=== PATIENT | female | born 1965 | race Caucasian/White ===

== ENCOUNTER → 2017-10-31 | Outpatient (CLI) | payer OTHER ==
[2017-10-31 18:59] LABS: Basophils # (A) 0.1 k/uL (0-0.2); Basophils % (A) 1 %; Eosinophils # (A) 0.1 k/uL (0-0.7); Eosinophils % (A) 1 %; HCT 42.9 % (34.0-46.0); Lymphocytes # (A) 1.8 k/uL (1.0-4.8); Lymphocytes % (A) 27 %; MCH 31.9 pg (25.0-35.0); MCHC 34.9 g/dL (31.0-37.0); MCV 91.4 fL (80.0-100.0); Mean Platelet Volume 6.8; Monocytes # (A) 0.5 k/uL (0-1.0); Monocytes % (A) 7 %; Neutrophils # (A) 4.1 k/uL (1.3-7.7); Neutrophils % (A) 61 %; Platelet Count 329 k/uL (150-450); RBC 4.69 m/uL (3.80-5.40); WBC 6.7 k/uL (3.8-10.6)
== END | disposition home or self-care (01) ==
LOC: LABPAT 17:00
PROVIDERS: ATTEND Obstetrics & Gynecology
DX: Z01.812 Encounter for preprocedural laboratory examination (principal); D06.9 Carcinoma in situ of cervix, unspecified
CPT/HCPCS: 36415; 85025

== ENCOUNTER 2017-11-05 09:22 | Day surgery (SDC) | payer OTHER ==
[2017-10-31 15:46] VITALS: BMI 25.7
--- NOTE | 2017-11-04 16:06 | HP ---
HISTORY AND PHYSICAL DATE OF SURGERY: 11/05/2017 This is a 51-year-old white female who presents with a history of abnormal Pap smear. This was followed up by colposcopy in the office, biopsies at 10 o'clock and ECC, both revealing high-grade ANN. Patient is postmenopausal. We have discussed options and have elected to proceed with cold knife conization of the cervix and ECC. She understands the risks of bleeding, infection, inadequate removal of lesion, postoperative dyspareunia and recurrence, as well as the risks of anesthesia. All questions answered. PAST MEDICAL HISTORY: Significant for thyroid disease. PAST SURGICAL HISTORY: 1. Appendectomy in 1978. 2. Foot surgery in May of 2017. CURRENT MEDICATIONS: 1. Alprazolam 0.25 mg as needed. 2. Calcium with vitamin D daily. 3. Fish oil daily. 4. Levothyroxine 100 mcg daily. 5. Multivitamin daily. ALLERGIES: NONE KNOWN. FAMILY HISTORY: Significant for brain cancer in the patient's father. REPRODUCTIVE HISTORY: Significant for 1 miscarriage, 3 normal spontaneous vaginal deliveries without complication. 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 She admits to 1-2 alcoholic beverages weekly, caffeine daily, has never been a tobacco smoker or a user of illicit drugs. PHYSICAL EXAMINATION: This is a pleasant white female, 5 feet 4 inches, 157 pounds, BMI 27, blood pressure 120/72. Patient is afebrile. HEENT exam reveals no thyromegaly, no cervical lymphadenopathy, good dentition. Breasts are bilaterally symmetric to inspection with no nipple discharge, axillary adenopathy or discernible lesions or masses. ABDOMEN: Soft, nontender. No organosplenomegaly. No CVA tenderness. Cardiac exam reveals regular rate and rhythm with no murmur, click, or rub. CHEST: Clear in all kumar anteriorly and posteriorly. Extremities are negative for edema. There are good peripheral pulses. On pelvic exam, cervix is multiparous. Uterus is small, mobile, anteverted and anteflexed. Adnexa are negative bilaterally. Rectal exam is negative. IMPRESSION: High-grade ANN noted on colposcopically directed biopsies of the cervix at 10 o'clock with positive ECC. PLAN: We will proceed with cold knife conization at the hospital. All risks, benefits and alternatives have been reviewed in detail, all questions answered. MMODL / IJN: [id number] /
[~2017-11-05 09:22] MED LIST: DEXAMETHASONE SOD PHOSPHATE 10 MG/ML 1 ML VIAL IV ONE; LACTATED RINGERS 1,000 ML IV SCH; LIDOCAINE 1% 20 ML VIAL (10MG/ML) FOR IV START INTRADERMA PRN; ONDANSETRON 4 MG/2 ML VIAL IVP ONE; Pre Op ABX Message 1 EACH MISC MISCELLANE ONE; SCOPOLAMINE 1.5MG/72HR PATCH TRANSDERM ONE; fentaNYL (PF) 50 MCG/ML 2 ML AMP IV PRN
[2017-11-05] MEDS ORDERED: PROPOFOL 10 MG/ML 20 ML VIAL IV ONE (10:56)
[2017-11-05] MEDS ORDERED: fentaNYL (PF) 50 MCG/ML 2 ML AMP ONE (10:56)
[2017-11-05] MEDS ORDERED: MIDAZOLAM 2 MG/2 ML VIAL ONE (10:56)
[2017-11-05] MEDS ORDERED: KETOROLAC 30 MG/ML 1 ML VIAL ONE (10:56)
[2017-11-05] MEDS ORDERED: LIDOCAINE 1% INJ 10MG/ML (20 ML MDV) ONE (10:56)
[2017-11-05] MEDS ORDERED: LIDOCAINE 1%-EPI 1:100,000 20 ML VIAL SQ ONE (11:11)
[2017-11-05] MEDS ORDERED: FERRIC SUBSULFATE (MONSELS) JAR TOPICAL ONE (11:11)
[2017-11-05] MEDS ORDERED: ACETIC ACID 15 DROPS/ML DROPS MISCELLANE ONE (11:11)
[2017-11-05] MEDS ORDERED: IODINE/POTASS IOD (LUGOLS) BTL TOPICAL ONE (11:11)
[2017-11-05] MEDS ORDERED: VASOPRESSIN 20 UNIT/ML 1 ML VIAL SQ ONE (11:15)
--- NOTE | 2017-11-05 11:25 | P.OP ---
Date of Procedure: 11/05/17 Preoperative Diagnosis: High-grade squamous intraepithelial lesion on the cervix at 10:00, and on ECC. Postoperative Diagnosis: Pathology pending Procedure(s) Performed: Cold knife conization, endocervical curettage Anesthesia: SHANAEA Surgeon: Monika Alba Estimated Blood Loss (ml): 5 IV fluids (ml): 400 Urine output (ml): 100 Pathology: none sent (Cervical conization specimen suture tied at 12:00, and ECC.) Condition: stable Disposition: PACU Description of Procedure: Patient is brought to the operating suite where a general anesthetic is administered without difficulty. She's placed in the dorsal lithotomy position. Urine hCG is negative. The appropriate timeout is performed to assure proper patient and procedural identification. The cervix, vagina, perineum and periurethral areas are all prepped and draped in usual sterile fashion. Examination under anesthesia does reveal uterine prolapse, approximately grade 2-3, negative adnexa bilaterally. Bladder is drained with a red Luna catheter for approximately 100 mL of clear yellow urine. Speculum was placed into the vagina. Anterior lip of the cervix is grasped with an Allis clamp at 12:00. The cervix is injected circumferentially with a dilute Pitressin solution. Stay sutures are placed, 0 Vicryl suture, held with hemostats laterally. A curved sharp scalpel blade is used to remove the conization specimen and this is sent to pathology after it is suture tied at 12: 00. Endocervical curettage is then performed with a Kevorkian curette for a scant amount of tissue, sent under separate cover. The ball cautery is used to cauterize the remaining surface of the cervix and endocervical canal. Hemostasis is excellent. A small amount of Monsel solution is applied. Stay sutures are removed. All sponge needle and enhancement counts are correct at the end of the procedure. Cervix is clean and dry. Vital signs are stable upon transfer to recovery room including pulse of 59, blood pressure 103/50, 99% O2 saturation. Toradol is given prior to leaving the operative suite. Patient will follow-up with me in the office in 2 weeks.
[2017-11-05 11:37] VITALS: TEMP 97
[2017-11-05 12:45] VITALS: RESP 16
[2017-11-05 13:12] VITALS: BP 94/59; PULSE 75
== END 2017-11-05 13:29 | disposition home or self-care (01) ==
LOC: OR 09:22
PROVIDERS: ATTEND Obstetrics & Gynecology
DX: N87.1 Moderate cervical dysplasia (principal); N87.9 Dysplasia of cervix uteri, unspecified; E07.9 Disorder of thyroid, unspecified; Z79.890 Hormone replacement therapy
CPT/HCPCS: 81025; 88305; 88307; 57520; J2250; J1100; J2405; J2001; J3010; J1885; J2704

== ENCOUNTER 2018-06-09 10:41 | Day surgery (SDC) | payer OTHER ==
[2018-06-05 10:07] VITALS: BMI 26.2
[~2018-06-09 10:41] MED LIST changes: -DEXAMETHASONE SOD PHOSPHATE 10 MG/ML 1 ML VIAL IV ONE; -LIDOCAINE 1% 20 ML VIAL (10MG/ML) FOR IV START INTRADERMA PRN; -ONDANSETRON 4 MG/2 ML VIAL IVP ONE; -Pre Op ABX Message 1 EACH MISC MISCELLANE ONE; -SCOPOLAMINE 1.5MG/72HR PATCH TRANSDERM ONE; -fentaNYL (PF) 50 MCG/ML 2 ML AMP IV PRN
[2018-06-09] MEDS ORDERED: LACTATED RINGERS 1,000 ML IV ONE (11:07)
[2018-06-09] MEDS ORDERED: LIDOCAINE 1% 20 ML VIAL (10MG/ML) FOR IV START INTRADERMA ONE (11:08)
[2018-06-09 11:14] VITALS: TEMP 97.8
[2018-06-09] MEDS ORDERED: PROPOFOL 10 MG/ML 20 ML VIAL IV ONE (12:11)
--- NOTE | 2018-06-09 12:44 | P.PCN ---
Date of Procedure: 06/09/18 Procedure(s) Performed: Procedure: Total colonoscopy. Preoperative diagnosis: Screening for neoplasia. Postoperative diagnosis: Diverticulosis with no evidence of acute diverticulitis , strictures, polyps or cancer. Preparation: HalfLytely prep. Sedation: Was provided by anesthesia. Brief clinical history: The patient is a 52-year-old female who is scheduled for this evaluation for screening for neoplasia age being her risk factor. She has no abdominal complaints bleeding or anemia. No family history of colon cancer. This would be her first colonoscopy. Procedure: With the patient on her left lateral decubitus position and after informed consent and adequate sedation, the perianal area was inspected and it did not show any fissures or fistulas. There were no masses felt on digital rectal examination. The Olympus CFH 190L video colonoscope was then inserted in the rectum in the usual fashion and advanced to the cecum. There were multiple small diverticular orifices seen scattered in the sigmoid and occasional small orifice seen around the hepatic flexure and on the right side with no evidence of acute diverticulitis or strictures. The mucosa appeared healthy. No polyps or tumors were seen. I retroflexed the endoscope in the rectum before the endoscope was withdrawn. The patient tolerated the procedure well. Plan: The patient was reassured. Discussed dietary measures. She will follow- up with you as planned and I recommended repeat exam in 10 years.
[2018-06-09 13:30] VITALS: BP 108/63; PULSE 77; RESP 18
== END 2018-06-09 13:50 | disposition home or self-care (01) ==
LOC: ORWHC2ENDO 10:41
DX: Z12.11 Encounter for screening for malignant neoplasm of colon (principal); K57.30 Diverticulosis of large intestine without perforation or abscess without bleeding; E07.9 Disorder of thyroid, unspecified; Z79.890 Hormone replacement therapy
CPT/HCPCS: 81025; J2704; G0121